=== PATIENT | male | born 1980 | race African-American/Black ===

== ENCOUNTER 2017-02-18 16:16 | Inpatient (IN) | payer OTHER ==
--- NOTE | ~2017-02-18 | DS ---
Unit #: [id number] #: [id number] Patient: SHELL REYNOLDS [id number] [facility] [address] [place] [address] [id number] I MR#: [id number] NAME: SHELL REYNOLDS ROOM: [facility] Age: 37 Sex: M Admission Date: 02/18/2017 : 1980 Discharge Date: 02/21/2017 Attending Physician: Yao Lucero M.D. Primary Care Physician: Generic Doctor Not In System DISCHARGE SUMMARY IDENTIFYING DATA Mr. Reynolds is a 37-year-old single male, who is a resident of [place], [place] and was transferred to us from [facility] in [place], [place]. DISCHARGE DIAGNOSES Psychiatric: Opioid dependence, moderate and acute withdrawals; opioid-induced mood disorder. Medical: None. Stressors: Mild psychosocial stressors. HISTORY OF PRESENT ILLNESS Please see initial psychiatric evaluation for details. PAST PSYCHIATRIC HISTORY Please see initial psychiatric evaluation for details. PAST MEDICAL HISTORY Please see initial psychiatric evaluation for details. HOSPITAL COURSE The patient was admitted to the adult chemical dependency unit at [facility] and was oriented to the hospital environment. Routine p.r.n. medications were initiated, and he was started on the detox protocol and was closely monitored. He was taking the medications regularly and was tolerating them fairly well and was able to come out of the detox without any complications and was wanting to go home and was willing to continue treatment on an outpatient basis and as such, it was decided that he will be discharged home and will continue treatment on an outpatient basis. DISCHARGE MEDICATIONS None. DISCHARGE CONDITION Stable. PROGNOSIS Fair. Dictated by... Yao Lucero M.D. IAA/modl Unit #: [id number] #: [id number] Patient: SHELL REYNOLDS TD: 02/21/2017 06:51 JOB #: [id number] DISCHARGE SUMMARY Page 1 of 1 X Yao Lucero MD X DISCHARGE SUMMARY
--- NOTE | ~2017-02-18 | PN ---
Unit #: [id number] #: [id number] Patient: SHELL REYNOLDS [id number] [facility] [address] [place] [address] [id number] I MR#: [id number] NAME: SHELL REYNOLDS ROOM: [facility] Age: 37 Sex: M Admission Date: 02/18/2017 : 1980 Attending Physician: Yao Lucero M.D. Admitting Physician: Yao Lucero M.D. Primary Care Physician: Joe Doctor Not In System [facility] PROGRESS NOTES DATE OF SERVICE 02/19/2017 DISCUSSION Mr. Reynolds is a 37-year-old male who was seen today. Chart was reviewed and case was discussed with the staff. He has been anxious, withdrawn, and rather seclusive to himself. Meanwhile, he has been cooperative with the treatment recommendations and has been taking the medications and tolerating them fairly well with no reported side effects. MENTAL STATUS EXAMINATION Young male who is casually dressed with fair personal hygiene, appears to be in no acute distress or discomfort. The patient was awake and alert on interaction with intact orientation. His mood is anxious with congruent affect. He denies any suicidal or homicidal ideations. His insight and judgment remain slightly impaired. TREATMENT PLAN 1. We will continue him on his current treatment protocol. We will monitor his response to the medications and make further adjustments as needed. 2. We will continue to follow up. Dictated by... Yao Lucero M.D. IAA/bzg TD: 02/20/2017 08:22 JOB #: [id number] Unit #: [id number] #: [id number] Patient: SHELL REYNOLDS PEAOZIEL PROGRESS NOTES Page 1 of 1 X Yao Lucero MD X PROGRESS NOTE
--- NOTE | ~2017-02-18 | HP ---
Unit #: [id number] #: [id number] Patient: SHELL REYNOLDS [id number] [facility] [address] [place] [address] [id number] I MR#: [id number] NAME: SHELL REYNOLDS ROOM: P261 Age: 37 Sex: M Admission Date: 02/18/2017 : 1980 Attending Physician: Yao Lucero M.D. Admitting Physician: Yao Lucero M.D. Primary Care Physician: Joe Doctor Not In System HISTORY AND PHYSICAL HISTORY OF PRESENT ILLNESS Ofelia is a 37 year old admitted to [address] [place] [address] because of his continued drug use. He has had other admissions to this facility for treatment of the same. PAST MEDICAL HISTORY Long history of illicit substance abuse to include IV heroin. PAST SURGICAL HISTORY Right knee, left arm. ALLERGIES No known drug allergies. SOCIAL HISTORY Smokes one pack per day. Denies alcohol. Admits to a history of illicit substance abuse to include IV heroin. FAMILY HISTORY Medically noncontributory. REVIEW OF SYSTEMS CONSTITUTIONAL: No fever or chills. HEENT: Denies any sore throat, ear pain or runny nose. CARDIOVASCULAR: Denies chest pain, irregular heart rhythm or palpitations. CHEST: Denies shortness of breath or cough. No hemoptysis. GASTROINTESTINAL: Denies nausea, vomiting, diarrhea or chronic constipation. ENDOCRINE: Denies history of increased thirst or urination. No recent significant weight loss or gain. GENITOURINARY: Denies dysuria, frequency, or hematuria. SKIN: Denies any rashes. HEMATOLOGIC: Denies history of increased bleeding or bruising. MUSCULOSKELETAL: Denies any hot, swollen joints. No generalized muscle pain. NEUROLOGIC: Denies problems with vision or speech. No frequent, severe headaches. No numbness, tingling or weakness in any extremities. Denies loss of bladder or bowel control. CURRENT MEDICATIONS Detox protocol. PHYSICAL EXAMINATION Unit #: [id number] #: [id number] Patient: SHELL REYNOLDS GENERAL: Alert, well nourished. No apparent distress. VITAL SIGNS: Blood pressure 110/50, heart rate 80, respirations 16, and temperature 98.6. WEIGHT: 200. HEIGHT: 6 feet 0 inches. SKIN: Warm and dry without rash or lesion. HEENT: Normocephalic. TMs not viewed. Oral and nasal passages clear. Conjunctivae clear. PERRLA. EOMs intact. NECK: Supple without lymphadenopathy or thyromegaly. HEART: Regular rate and rhythm without murmur. LUNGS: Clear. ABDOMEN: Soft, nontender. : Not done. EXTREMITIES: No evidence of cyanosis, clubbing or edema. Moves all without focal deficit. NEUROLOGICAL: Grossly within normal limits. Cranial Nerves: II: Visual morris are intact. III, IV AND : Extraocular movements are intact. Pupils are equal, round and reactive to light. V: Facial sensation is grossly normal. VII: Facial movements and expression are normal. VIII: Auditory acuity grossly intact. IX, X: Uvula is midline. Phonation is normal. XI: Patient shrugs shoulders and turns head normally. XII: Tongue protrudes in the midline. Sensory and Motor Function: Sensory and motor sensation is grossly normal. Motor: moves all extremities well. Coordination: Gait is normal. Deep Tendon Reflexes: Intact. IMPRESSION Psychiatric admission. RECOMMENDATIONS PSYCHIATRIC: Per psychiatrist. MEDICAL: I see no contraindication to participate in this facility's activities. MEDICAL PROGNOSIS Good. MEDICAL CONDITION Stable. Dictated by... China Abreu PRufinaARufina-Phuc. for Tj Sofia/yasir TD: 02/19/2017 12:46 JOB #: [id number] Unit #: [id number] #: [id number] Patient: SHELL REYNOLDS HISTORY AND PHYSICAL Page 1 of 1 X China Abreu HISTORY AND PHYSICAL
--- NOTE | ~2017-02-18 | PN ---
Unit #: [id number] #: [id number] Patient: SHELL REYNOLDS [id number] [facility] [address] [place] [address] [id number] I MR#: [id number] NAME: SHELL REYNOLDS ROOM: [facility] Age: 37 Sex: M Admission Date: 02/18/2017 : 1980 Attending Physician: Yao Lucero M.D. Admitting Physician: Yao Lucero M.D. Primary Care Physician: Joe Doctor Not In System [facility] PROGRESS NOTES DATE 02/20/2017 DISCUSSION Mr. Reynolds is a 37-year-old, male who was seen today and chart was reviewed and case was discussed with the staff. He has been anxious, withdrawn and rather seclusive to himself. Meanwhile, he has been cooperative with treatment recommendations. He has been taking the medication and tolerating them fairly well with no reported side effects. MENTAL STATUS EXAM Young male who was casually dressed with fair personal hygiene, appears to be in no acute distress or discomfort. He was awake and alert on interaction with intact orientation. His mood was anxious with congruent affect. He denies any suicidal or homicidal ideation. Also, denies any auditory or visual hallucinations. His insight and judgement remains slightly impaired. TREATMENT PLAN 1. We will continue him on his current treatment protocol. We will monitor his response to the medication and make further adjustments as needed. 2. We will continue to follow up. Dictated by... Tj Deluca/stone TD: 02/21/2017 02:45 JOB #: [id number] Unit #: [id number] #: [id number] Patient: SHELL REYNOLDS PEAOZIEL PROGRESS NOTES Page 1 of 1 X Yao Lucero MD PROGRESS NOTE
--- NOTE | ~2017-02-18 | PA ---
Unit #: [id number] #: [id number] Patient: SHELL REYNOLDS [id number] [facility] [address] [place] [address] [id number] I MR#: [id number] NAME: SHELL REYNOLDS ROOM: P261 Age: 37 Sex: M Admission Date: 02/18/2017 : 1980 Date of Assessment: 02/18/2017 Attending Physician: Yao Lucero M.D. Admitting Physician: Yao Lucero M.D. Primary Care Physician: Generic Doctor Not In System PSYCHIATRIC ASSESSMENT DATE OF SERVICE 02/18/2017. IDENTIFYING DATA Mr. Reynolds is a 37-year-old single male, who is a resident of [place], [place], and was transferred to us from [facility] in [place], [place]. CHIEF COMPLAINT "I relapsed on heroin two weeks ago." HISTORY OF PRESENT ILLNESS Mr. Reynolds is a 37-year-old male, who took himself to the emergency room at [facility] in [place], [place], stating that he relapsed on heroin two weeks ago and he has been clean since discharge from [facility] in [facility], and he has not been sleeping regularly stating "my sleep two days out of the week." He reports racing thoughts; mood swings; anxiety; feelings of restlessness; and significant withdrawal symptoms with GI upset, anxiety, nasal stuffiness, chills, and restlessness. He reports that he has had suicidal ideation in the past during withdrawal symptoms and wants to get help before he gets to the point where is unable to control his detox symptoms. He does report depression, anxiety, irritability, restlessness, and feelings of hopelessness and helplessness, but denies any suicidal ideations, intent, or plan. SUBSTANCE ABUSE HISTORY The patient reports history of experimentation with alcohol, but opioids, particularly heroin has been his drug of choice stating that he has been using up to 2 g of heroin a day. PAST PSYCHIATRIC HISTORY The patient has had a history of inpatient chemical dependency treatment at [facility] in the past. Review of the medical records indicate currently he is not active in any treatment program and is not seeing a psychiatrist and is not taking any psychotropic medications. PAST MEDICAL HISTORY Sleep apnea. ALLERGIES No known medication allergies. Unit #: [id number] #: [id number] Patient: SHELL REYNOLDS PERSONAL AND SOCIAL HISTORY A 37-year-old male, who reports that he is single, unemployed, and does not have a stable housing and reports having poor social support system. MENTAL STATUS EXAMINATION Young male, who was casually dressed with fair personal hygiene, appears to be in no acute distress or discomfort. He was awake and alert on interaction with intact orientation. His mood was anxious and depressed with a chronic affect. His speech was slow and restricted in content. His thought processes were disorganized with some looseness of associations. He denies any suicidal or homicidal ideations and also denies any auditory or visual hallucinations. His insight and judgment remain significantly impaired. DIAGNOSTIC IMPRESSION Psychiatric: Opioid dependence, moderate, in acute withdrawals and opioid-induced mood disorder. Medical: Sleep apnea. Stressors: Moderate psychosocial stressors. TREATMENT PLAN 1. The patient has presented with a history of substance abuse and mood disorder and has been decompensating and will need inpatient hospitalization for safety and stabilization. We will start him back on his home medications. We will adjust the medications and monitor response. 2. Supportive therapy was provided to the patient. 3. Safe, structured, and nourishing environment will be provided. ESTIMATED LENGTH OF STAY 4 to 5 days. ABILITY TO HELP SELF Limited. WILLINGNESS TO HELP SELF The patient appears to be willing to help self. STRENGTHS 1. Communicative. 2. Cooperative. PROBLEMS 1. Chronic chemical dependency. 2. Chronic dysphoric symptoms. 3. Poor social support system. DISCHARGE CRITERIA This will be contingent upon the patient's ability to go through detox without having any significant withdrawal symptoms as well as his ability to stay safe to himself, particularly after discharge from the hospital. Dictated by... Yao Lucero M.D. IAA/priscillal Unit #: [id number] #: [id number] Patient: SHELL REYNOLDS TD: 02/19/2017 16:24 JOB #: [id number] PSYCHIATRIC ASSESSMENT Page 1 of 1 X Yao Lucero MD X PSYCHIATRIC ASSESSMENT
== END 2017-02-21 11:30 | disposition home or self-care (01) | DRG 897 ==
LOC: P2L 16:16
PROC: HZ2ZZZZ Detoxification Services for Substance Abuse Treatment (ICD-10-PCS; principal; 2017-02-18)
DX: F11.23 Opioid dependence with withdrawal (principal); F11.24 Opioid dependence with opioid-induced mood disorder; G47.30 Sleep apnea, unspecified; F17.210 Nicotine dependence, cigarettes, uncomplicated
CPT/HCPCS: 86592

== ENCOUNTER 2017-04-17 01:02 | Inpatient (IN) | payer OTHER ==
[~2017-04-17] VITALS: Ht 180.3 cm; Wt 90.7 kg
--- NOTE | ~2017-04-17 | DS ---
Unit #: [id number] #: [id number] Patient: SHELL REYNOLDS [id number] [facility] [place] [address] [id number] I MR#: [id number] NAME: SHELL REYNOLDS ROOM: [facility] Age: 37 Sex: M Admission Date: 04/17/2017 : 1980 Discharge Date: 04/19/2017 Attending Physician: Yao Lucero M.D. Primary Care Physician: Primary Care Physician No DISCHARGE SUMMARY IDENTIFICATION DATA Mr. Reynolds is a 37-year-old male with history of substance abuse and mood disorder who was self-referred to the program. DISCHARGE DIAGNOSES PSYCHIATRIC: Opiate dependence, moderate, in acute withdrawal. Opiate-induced mood disorder. MEDICAL: None. STRESSORS: Moderate stressors. HISTORY OF PRESENT ILLNESS Same as in initial psychiatric evaluation. PAST PSYCHIATRIC HISTORY Same as in initial psychiatric evaluation. PAST MEDICAL HISTORY Same as in initial psychiatric evaluation. HOSPITAL COURSE The patient was admitted to the [facility] and was oriented to the hospital environment. Routine p.r.n. medications were initiated, and he was started on the detox protocol and was closely monitored. He was taking the medications regularly, but then he decided to come out (1) __ and was then encouraged to complete the treatment program. He refused to accept recommendations of the treatment team and was denying any suicidal ideations, intent, or plan, and was not meeting criteria for involuntary psychiatric hospitalization. As such it was decided that he will be discharged home against medical advice. DISCHARGE MEDICATIONS None. CONDITION AT DISCHARGE Stable. PROGNOSIS Guarded. Dictated by... Yao Lucero M.D. Unit #: [id number] #: [id number] Patient: SHELL REYNOLDS PEI/bzg TD: 05/08/2017 11:43 JOB #: [id number] DISCHARGE SUMMARY Page 1 of 1 X Yao Lucero MD X DISCHARGE SUMMARY
--- NOTE | ~2017-04-17 | CO ---
Unit #: [id number] #: [id number] Patient: SHELL REYNOLDS [id number] [facility] [address] [place] [address] [id number] I MR#: [id number] NAME: SHELL REYNOLDS ROOM: P182 Age: 37 Sex: M Admission Date: 04/17/2017 : 1980 Attending Physician: Yao Lucero M.D. Primary Care Physician: Primary Care Physician No Consultation Date: 04/17/2017 CONSULTATION REPORT HISTORY OF PRESENT ILLNESS Ezekiel reports that when he was admitted, he noticed a splinter in his foot and this has been causing quite a bit of pain. He has been unable to remove it. He is unsure where he got it, but he has been ambulating on the unit with the socks on and the splinter in his foot. He has no redness and no other complaints. PHYSICAL EXAMINATION CARDIAC: Regular rate and rhythm. No murmurs, gallops, or rubs. RESPIRATORY: Clear to auscultation bilaterally. SKIN: Small splinter, unable to determine if it is wood or metal, in the bottom of his right foot. ASSESSMENT AND PLAN Splinter. Splinter was removed and he reports relief from pain. There is no redness or edema at this time. No further treatment is indicated. Please notify if signs or symptoms of infection are present. Dictated by... Jabari Jamison/luke TD: 04/17/2017 23:44 JOB #: [id number] CONSULTATION REPORT Page 1 of 1 X JOANN MONTEZ APRN X CONSULTATION REPORT
--- NOTE | ~2017-04-17 | HP ---
Unit #: [id number] #: [id number] Patient: ROGER REYNOLDS [id number] [facility] [address] [place] [address] [id number] I MR#: [id number] NAME: ROGER REYNOLDS ROOM: P182 Age: 37 Sex: M Admission Date: 04/17/2017 : 1980 Attending Physician: Yao Lucero M.D. Admitting Physician: Yao Lucero M.D. Primary Care Physician: Primary Care Physician No HISTORY AND PHYSICAL HISTORY OF PRESENT ILLNESS Roger is a 37-year-old male admitted on 04/17/2017 to [facility] for detox from heroin. PAST MEDICAL HISTORY None. PAST SURGICAL HISTORY Left elbow fracture surgically repaired after a football injury and a right knee ACL tear surgically repaired. SOCIAL HISTORY Smokes one-half packs of cigarettes daily. Occasional social alcohol use and daily use of heroin. He is currently single and living with his girlfriend. FAMILY HISTORY Noncontributory. REVIEW OF SYSTEMS CONSTITUTIONAL: No fever or chills. HEENT: Denies any sore throat, ear pain or runny nose. CARDIOVASCULAR: Denies chest pain, irregular heart rhythm or palpitations. CHEST: Denies shortness of breath or cough. No hemoptysis. GASTROINTESTINAL: Denies nausea, vomiting, diarrhea or chronic constipation. ENDOCRINE: Denies history of increased thirst or urination. No recent significant weight loss or gain. GENITOURINARY: Denies dysuria, frequency, or hematuria. SKIN: Denies any rashes. HEMATOLOGIC: Denies history of increased bleeding or bruising. MUSCULOSKELETAL: Denies any hot, swollen joints. No generalized muscle pain. NEUROLOGIC: Denies problems with vision or speech. No frequent, severe headaches. No numbness, tingling or weakness in any extremities. Denies loss of bladder or bowel control. CURRENT MEDICATIONS None. ALLERGIES No known drug allergies. Unit #: [id number] #: [id number] Patient: ROGER REYNOLDS PHYSICAL EXAMINATION GENERAL: Alert, oriented, in no acute distress. VITAL SIGNS: Blood pressure 117/75, heart rate 74, temperature 98.0. HEIGHT: 5 foot 11 inches. WEIGHT: 200 pounds. SKIN: Warm and dry without rash or lesion. HEENT: Normocephalic. TMs not viewed. Oral and nasal passages clear. Conjunctivae clear. PERRLA. EOMs intact. NECK: Supple without lymphadenopathy or thyromegaly. HEART: Regular rate and rhythm without murmur. LUNGS: Clear. ABDOMEN: Soft, nontender, without masses or hepatosplenomegaly. : Not done. EXTREMITIES: No evidence of cyanosis, clubbing or edema. Moves all without focal deficit. NEUROLOGICAL: Grossly within normal limits. Cranial Nerves: II: Visual morris are intact. III, IV AND : Extraocular movements are intact. Pupils are equal, round and reactive to light. V: Facial sensation is grossly normal. VII: Facial movements and expression are normal. VIII: Auditory acuity grossly intact. IX, X: Uvula is midline. Phonation is normal. XI: Patient shrugs shoulders and turns head normally. XII: Tongue protrudes in the midline. Sensory and Motor Function: Sensory and motor sensation is grossly normal. Motor: moves all extremities well. Coordination: Gait is normal. Deep Tendon Reflexes: Intact. IMPRESSION Psychiatric admission. RECOMMENDATIONS Psychiatric, per psychiatrist. MEDICAL: I see no contraindications to participating in facility's activities. MEDICAL PROGNOSIS Good. MEDICAL CONDITION Stable. Dictated by... Jabari Jamison TD: 04/18/2017 01:28 JOB #: [id number] Unit #: [id number] #: [id number] Patient: ROGER REYNOLDS HISTORY AND PHYSICAL Page 1 of 1 X JOANN MONTEZ APRN X HISTORY AND PHYSICAL
--- NOTE | ~2017-04-17 | PA ---
Unit #: [id number] #: [id number] Patient: SHELL REYNOLDS [id number] [facility] [address] [place] [address] [id number] MR#: [id number] NAME: SHELL REYNOLDS ROOM: P182 Age: 37 Sex: M Admission Date: 04/17/2017 : 1980 Date of Assessment: Attending Physician: Yao Lucero M.D. Admitting Physician: Yao Lucero M.D. Primary Care Physician: Primary Care Physician No PSYCHIATRIC ASSESSMENT DATE OF SERVICE 04/17/2017. IDENTIFYING DATA Mr. Reynolds is a 37-year-old male, who was transferred to us from [facility] in [place], [place] on a voluntary basis where he presented requesting opioid detox from heroin. CHIEF COMPLAINT "I've been using half a gram or more daily by snorting it." HISTORY OF PRESENT ILLNESS Mr. Reynolds is a 37-year-old male with a history of substance abuse and dependence, who was brought to the hospital as a transfer from [facility] in [place], [place] where he presented stating that he wants to get detox from opioids and had a COWS of 13 upon presentation indicating significant withdrawal symptoms. He reports that he has been using half a gram or more on daily basis and he relapsed 2 weeks ago, but due to not being able to sleep and identified insomnia as a trigger for his relapse and reports that he has been awake for the past 36 hours and is using heroin to help himself sleep and that he has tried [id number] medication to help him with sleep, but does not find them to be helpful and reports increasing anxiety, depression and feelings of hopelessness and helplessness, and significant withdrawal symptoms, though he denies any current suicidal ideations, but reports having history of suicidal ideations in the past. SUBSTANCE ABUSE HISTORY The patient reports history of experimentation with alcohol, but reports opioids, particularly heroin, to be his drug of choice and reports that he has been using it via nasal route and denies any IV drug abuse. PAST PSYCHIATRIC HISTORY The patient has [facility], and was recently active under my care on the inpatient unit in 01/2017 and has not been able to follow up with any treatment recommendation outside of the hospital and as such, has been decompensating. PAST MEDICAL HISTORY No acute or chronic medical illnesses. PERSONAL AND SOCIAL HISTORY Unit #: [id number] #: [id number] Patient: SHELL REYNOLDS A 37-year-old male, who reports that he is single, unemployed, and lives at home with his mother and has poor social support system. MENTAL STATUS EXAMINATION Young male, who was casually dressed with fair personal hygiene, appears to be in no acute distress or discomfort. He was awake and alert on interaction with intact orientation to time, place, and person. His mood was anxious and depressed with a congruent affect. His speech was slow and restricted in content. His thought processes were disorganized with some looseness of associations and paranoid ideations. He denies any suicidal or homicidal ideations and also denies any auditory or visual hallucinations. His insight and judgment remain significantly impaired. DIAGNOSTIC IMPRESSION Psychiatric: Opioid dependence, moderate and acute withdrawals; opioid-induced mood disorder. Medical: None. Stressors: Moderate psychosocial stressors. TREATMENT PLAN 1. The patient has presented with a history of substance abuse and mood disorder, and has been decompensating and will need inpatient hospitalization for detoxification, safety, and stabilization. We will start him on detox protocol. We will closely monitor for any worsening withdrawal symptoms. 2. Supportive therapy was provided to the patient. 3. Safe, structured, and nourishing environment will be provided. ESTIMATED LENGTH OF STAY 4 to 5 days. ABILITY TO HELP SELF Limited. WILLINGNESS TO HELP SELF The patient appears to be willing to help self. STRENGTHS 1. Communicative. 2. Cooperative. PROBLEMS 1. Chronic dysphoric symptoms. 2. Poor social support system. DISCHARGE CRITERIA This will be contingent upon the patient's ability to show resolution of his depression and anxiety and his ability to stay safe to himself, particularly after discharge from the hospital. Dictated by... Yao Lucero M.D. Unit #: [id number] #: [id number] Patient: SHELL REYNOLDS IAA/modl TD: 04/17/2017 07:21 JOB #: [id number] PSYCHIATRIC ASSESSMENT Page 1 of 1 X Yao Lucero MD PSYCHIATRIC ASSESSMENT
--- NOTE | ~2017-04-17 | PN ---
Unit #: [id number] #: [id number] Patient: SHELL REYNOLDS [id number] [facility] [address] [place] [address] [id number] MR#: [id number] NAME: SHELL REYNOLDS ROOM: P182 Age: 37 Sex: M Admission Date: 04/17/2017 : 1980 Attending Physician: Yao Lucero M.D. Admitting Physician: Yao Lucero M.D. Primary Care Physician: Primary Care Physician Deja DECKER NOTES DATE OF SERVICE 04/18/2017 DISCUSSION Mr. Reynolds is a 37-year-old male who was seen today. Chart was reviewed and case was discussed with staff. He has been anxious, withdrawn, and rather seclusive to himself. Meanwhile, he has been cooperative with the treatment recommendations and has been taking the medications and tolerating them fairly well with no reported side effects. MENTAL STATUS EXAMINATION Young male who is casually dressed with fair personal hygiene, appears to be in no acute distress or discomfort. He was awake and alert with impaired attention and concentration. His mood is anxious with congruent affect. He denies any suicidal or homicidal ideations and also denies any auditory or visual hallucinations. His insight and judgment remain slightly impaired. TREATMENT PLAN 1. We will continue him on his current medications and treatment protocol. We will monitor his response to the medications and make further adjustments as needed. 2. We will continue to follow up. Dictated by... Tj Deluca/allysong TD: 04/18/2017 13:18 JOB #: [id number] Unit #: [id number] #: [id number] Patient: SHELL REYNOLDS PROGRESS NOTES Page 1 of 1 X Yao Lucero MD PROGRESS NOTE
--- NOTE | ~2017-04-17 | PN ---
Unit #: [id number] #: [id number] Patient: SHELL REYNOLDS [id number] [facility] [address] [place] [address] [id number] MR#: [id number] NAME: SHELL REYNOLDS ROOM: P182 Age: 37 Sex: M Admission Date: 04/17/2017 : 1980 Attending Physician: Yao Lucero M.D. Admitting Physician: Yao Lucero M.D. Primary Care Physician: Primary Care Physician Deja DECKER NOTES DATE OF SERVICE 04/19/2017 DISCUSSION Mr. Reynolds is a 37-year-old male with substance abuse and mood disorder who was seen today. Chart was reviewed and case was discussed with the staff. He has been anxious, withdrawn, and rather seclusive to himself. Meanwhile, he has been cooperative with the treatment recommendations and has been taking the medications and tolerating them fairly well with no reported side effects. MENTAL STATUS EXAMINATION Young male who is casually dressed with fair personal hygiene, appears to be in no acute distress or discomfort. The patient was awake and alert with intact orientation. His mood is anxious with a congruent affect. He denies any suicidal or homicidal ideations. His insight and judgment remain slightly impaired. TREATMENT PLAN 1. We will continue him on his current medications and treatment protocol. We will monitor his response to the medications and make further adjustments as needed. 2. We will continue to follow up. Dictated by... Yao Lucero M.D. IAA/allysong TD: 04/19/2017 10:05 JOB #: [id number] Unit #: [id number] #: [id number] Patient: SHELL REYNOLDS PROGRESS NOTES Page 1 of 1 X Yao Lucero MD X PROGRESS NOTE
== END 2017-04-19 13:50 | disposition home or self-care (01) | DRG 897 ==
LOC: P1E 04:28
PROC: HZ2ZZZZ Detoxification Services for Substance Abuse Treatment (ICD-10-PCS; principal; 2017-04-17)
DX: F11.23 Opioid dependence with withdrawal (principal); F11.24 Opioid dependence with opioid-induced mood disorder; F17.210 Nicotine dependence, cigarettes, uncomplicated; S90.851A Superficial foreign body, right foot, initial encounter